=== PATIENT | male | born 1970 | race African-American/Black ===

== ENCOUNTER 2021-12-03 12:25 | Emergency (ER) | payer MEDICAID ==
[~2021-12-03] VITALS: Ht 175.3 cm; Wt 107.5 kg
[2021-12-03 12:25] VITALS: BP_SYST 137
[2021-12-03] MEDS ORDERED: DIPH-TET-PERTUS Vaccine 0.5 ML VIAL (ADACEL) I.M. ONE (12:45)
[2021-12-03] MEDS ORDERED: LIDOCAINE 1% 10 MG/ML, 20 ML MDV INJ ONE (12:45)
[2021-12-03 12:52] LABS: BASOPHILS % (AUTO) 0.4 % (0.0-2.0); EOSINOPHILS % (AUTO) 0.5 % (0.0-4.0); HEMATOCRIT 44.8 % (36-54); HEMOGLOBIN 15.3 g/dL (14.0-18.0); LYMPHOCYTES # (AUTO) 2.3 K/uL (1.0-5.5); LYMPHOCYTES % (AUTO) 24.9 % (20.5-51.5); MEAN CORPUSCULAR HEMOGLOBIN 32 pg (27-31); MEAN CORPUSCULAR HGB CONC 34 % (32-36); MEAN CORPUSCULAR VOLUME 93 fL (79.0-98.0); NEUTROPHILS # (AUTO) 5.8 K/uL (1.8-7.7); NEUTROPHILS % (AUTO) 63.2 % (40.0-70.0); PLATELET COUNT (AUTO) 283 K/uL (130-430); RED CELL DISTRIBUTION WIDTH 14.7 % (9.0-15.0); WHITE BLOOD COUNT (AUTO) 9.2 K/uL (4.8-10.8)
[2021-12-03] MEDS ORDERED: CLIN-142 PO (13:28)
[2021-12-03 13:30] LABS: CALCIUM 8.2 mg/dL (8.4-11.0); CREATININE 1.08 mg/dL (0.55-1.30); POTASSIUM 4.4 mmol/L (3.5-5.1)
[2021-12-03 13:34] LABS: ALBUMIN 3.2 g/dL (3.4-4.8); C-REACTIVE PROTEIN QUANT 4.8 mg/dL (0-0.5); TOTAL BILIRUBIN 0.5 mg/dL (0.0-1.0)
[2021-12-03] MEDS ORDERED: BACITRACIN 1 GM OINT TP ONE (13:41)
[2021-12-03 14:21] VITALS: BP_SYST 137
== END 2021-12-03 14:21 | disposition home or self-care (01) ==
LOC: SED 12:25
DX: L02.211 Cutaneous abscess of abdominal wall (principal); Z88.6 Allergy status to analgesic agent; Z79.899 Other long term (current) drug therapy
CPT/HCPCS: 10060; 36415; 80053; 83605; 85025; 86140; 90471; 90715; 99283; J2001

== ENCOUNTER 2021-12-10 23:25 | Emergency (ER) | payer MEDICAID ==
[~2021-12-10] VITALS: Ht 175.3 cm; Wt 104.3 kg
[~2021-12-10 23:25] MED LIST: CLIN-142 PO
[2021-12-10 23:40] VITALS: BP_SYST 138
[2021-12-11 00:30] VITALS: BP_SYST 106
== END 2021-12-11 00:29 | disposition home or self-care (01) ==
LOC: SED 23:25
DX: L02.211 Cutaneous abscess of abdominal wall (principal); Z48.00 Encounter for change or removal of nonsurgical wound dressing
CPT/HCPCS: 99282

== ENCOUNTER 2021-12-14 10:48 | Emergency (ER) | payer MEDICAID ==
[~2021-12-14] VITALS: Ht 175.3 cm; Wt 104.8 kg
[2021-12-14 10:54] VITALS: BP_SYST 137
--- NOTE | 2021-12-14 10:55 | NUR ---
pt bib pov self for abd wound check. pt was triaged vss. dr villa at bedside
[2021-12-14] MEDS ORDERED: BACITRACIN 1 GM OINT TP ONE (10:59)
--- NOTE | 2021-12-14 11:03 | NUR ---
bacatracian applied to abd wound site then 2x2 and paper tape
[2021-12-14 11:12] VITALS: BP_SYST 144
--- NOTE | 2021-12-14 11:13 | NUR ---
Patient given written and verbal discharge instructions and verbalizes understanding. JORGE villa MD discussed with patient the results and treatment provided. Patient in stable condition. ID arm band removed. Patient educated on pain management and to follow up with PMD. Pain Scale 0. Opportunity for questions provided and answered. Medication side effect fact sheet provided.
== END 2021-12-14 11:12 | disposition home or self-care (01) ==
LOC: SED 10:48
DX: L02.211 Cutaneous abscess of abdominal wall (principal); Z48.817 Encounter for surgical aftercare following surgery on the skin and subcutaneous tissue; Z88.6 Allergy status to analgesic agent; Z79.899 Other long term (current) drug therapy
CPT/HCPCS: 99282

== ENCOUNTER 2022-02-01 07:32 | Emergency (ER) | payer MEDICAID ==
[~2022-02-01] VITALS: Ht 175.3 cm; Wt 106.6 kg
[2022-02-01 07:35] VITALS: BP_SYST 123
--- NOTE | 2022-02-01 07:35 | NUR ---
Pt to bed 4 for evaluation. Report to EDD Kidd who will assume care.
--- NOTE | 2022-02-01 07:40 | NUR ---
pt came to er by private vehicle from home, drove himself. pt has complaint of nubness bilaterally of arms. pt stated the right arm started on and off 1 yr ago. the left arm 2-3 weeks. pt does have limited rage of montion on right arm compared to left arm. pt does not have deminished bilateral hand strength. pt describes pain 6/10, took a tylenol apx 430 this morning. pt is in bed, with bed lowered and locked rails up
--- NOTE | 2022-02-01 07:47 | NUR ---
Dr Hull at pt bedside
--- NOTE | 2022-02-01 07:52 | NUR ---
JORGE Hollis at bedside examining patient.
--- NOTE | 2022-02-01 07:59 | NUR ---
EKG BEING CONDUCTED AT PATIENT BEDSIDE BY SUSI PATRICK
--- NOTE | 2022-02-01 08:00 | NUR ---
LAB AT PT BEDSIDE TO OBTAIN SAMPLE
--- NOTE | 2022-02-01 08:12 | NUR ---
XRAY TOOK PATIENT TO IMAGING ROOM
[2022-02-01 08:14] LABS: BASOPHILS % (AUTO) 0.4 % (0.0-2.0); EOSINOPHILS # (AUTO) 0.1 K/uL (0.0-0.4); EOSINOPHILS % (AUTO) 1.3 % (0.0-4.0); HEMATOCRIT 43.9 % (36-54); HEMOGLOBIN 14.6 g/dL (14.0-18.0); LYMPHOCYTES # (AUTO) 2.3 K/uL (1.0-5.5); LYMPHOCYTES % (AUTO) 43.4 % (20.5-51.5); MEAN CORPUSCULAR HEMOGLOBIN 31 pg (27-31); MEAN CORPUSCULAR HGB CONC 33 % (32-36); MEAN CORPUSCULAR VOLUME 94 fL (79.0-98.0); MONOCYTES # (AUTO) 0.6 K/uL (0.0-1.0); MONOCYTES % (AUTO) 10.9 % (1.7-9.3); NEUTROPHILS # (AUTO) 2.4 K/uL (1.8-7.7); PLATELET COUNT (AUTO) 279 K/uL (130-430); RED BLOOD CELL COUNT(AUTO) 4.69 MIL/uL (4.2-6.2); RED CELL DISTRIBUTION WIDTH 15.2 % (9.0-15.0); WHITE BLOOD COUNT (AUTO) 5.4 K/uL (4.8-10.8)
[2022-02-01 08:19] LABS: CREATININE 0.96 mg/dL (0.55-1.30); POTASSIUM 3.9 mmol/L (3.5-5.1)
[2022-02-01 08:24] LABS: TOTAL BILIRUBIN 0.3 mg/dL (0.0-1.0)
[2022-02-01] MEDS ORDERED: GABAPENTIN 300 MG CAPSULE PO ONE (09:00)
[2022-02-01] MEDS ORDERED: NEU300 PO (09:29)
[2022-02-01] MEDS ORDERED: ACET325T PO (09:29)
[2022-02-01] MEDS ORDERED: PRED20TA PO (09:29)
[2022-02-01 10:06] VITALS: BP_SYST 121
--- NOTE | 2022-02-01 10:07 | NUR ---
Patient given written and verbal discharge instructions and verbalizes understanding. ER MD discussed with patient the results and treatment provided. Patient in stable condition. ID arm band removed. Rx of TYLENOL, GABAPENTIN AND PREDNISONE given. Patient educated on pain management and to follow up with PMD. Pain Scale /10. Opportunity for questions provided and answered. Medication side effect fact sheet provided.
== END 2022-02-01 10:06 | disposition home or self-care (01) ==
LOC: SED 07:32
DX: M19.011 Primary osteoarthritis, right shoulder (principal); M47.812 Spondylosis without myelopathy or radiculopathy, cervical region; G56.22 Lesion of ulnar nerve, left upper limb; M50.322 Other cervical disc degeneration at C5-C6 level
CPT/HCPCS: 36415; 72040-TC; 73030; 80053; 84484; 85025; 93005; 99284; 99285

== ENCOUNTER 2022-03-18 22:50 | Emergency (ER) | payer MEDICAID ==
[~2022-03-18] VITALS: Ht 175.3 cm; Wt 106.6 kg
[~2022-03-18 22:50] MED LIST changes: +ACET325T PO; +NEU300 PO; +PRED20TA PO
[2022-03-18 22:56] VITALS: BP_SYST 122
--- NOTE | 2022-03-18 23:00 | NUR ---
PER PATIENT, DURING HIS BREAK AT WORK, PATIENT STARTED FEELING DIZZY AND VOMITING X3 AT APROX 2130 WITH ABDOMINAL PAIN AT THIS TIME. NO DIZZINESS AT THIS TIME, NOW IS FEELING LIGHT-HEADED.
--- NOTE | 2022-03-18 23:13 | NUR ---
Pt in bed 5 at this time w/ c/o lightheadedness, N/V, RLQ abdominal pain 7/10 burning in nature. 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 call light within reach. bed in low position. Normal skin color for ethnicity. Ambulates with strong steady gait.
[2022-03-18] MEDS ORDERED: ONDANSETRON 4 MG ODT TAB PO ONE (23:30)
--- NOTE | 2022-03-18 23:52 | NUR ---
Pt to CT at this time
[2022-03-18 23:58] LABS: BASOPHILS % (AUTO) 0.7 % (0.0-2.0); EOSINOPHILS # (AUTO) 0.1 K/uL (0.0-0.4); EOSINOPHILS % (AUTO) 1.7 % (0.0-4.0); HEMATOCRIT 41.8 % (36-54); HEMOGLOBIN 14.2 g/dL (14.0-18.0); LYMPHOCYTES # (AUTO) 2.4 K/uL (1.0-5.5); LYMPHOCYTES % (AUTO) 40.3 % (20.5-51.5); MEAN CORPUSCULAR HEMOGLOBIN 32 pg (27-31); MEAN CORPUSCULAR HGB CONC 34 % (32-36); MEAN CORPUSCULAR VOLUME 94 fL (79.0-98.0); MONOCYTES # (AUTO) 0.7 K/uL (0.0-1.0); MONOCYTES % (AUTO) 11.8 % (1.7-9.3); NEUTROPHILS # (AUTO) 2.7 K/uL (1.8-7.7); NEUTROPHILS % (AUTO) 45.5 % (40.0-70.0); PLATELET COUNT (AUTO) 241 K/uL (130-430); RED BLOOD CELL COUNT(AUTO) 4.44 MIL/uL (4.2-6.2); RED CELL DISTRIBUTION WIDTH 15.3 % (9.0-15.0)
[2022-03-19 00:24] LABS: ANION GAP 6 (5-15); CALCIUM 7.8 mg/dL (8.4-11.0); CHLORIDE 106 mmol/L (98-107); GLUCOSE 107 mg/dL (70-99); POTASSIUM 3.7 mmol/L (3.5-5.1); SODIUM SERUM 139 mmol/L (136-145); UREA NITROGEN, BLOOD 19 mg/dL (8-21)
[2022-03-19 00:33] LABS: ALANINE AMINOTRANSFERASE 24 U/L (12-78); ALBUMIN 2.9 g/dL (3.4-4.8); ASPARTATE AMINOTRANSFERASE 27 U/L (10-37); LIPASE 109 U/L (73-393); TOTAL BILIRUBIN < 0.1 mg/dL (0.0-1.0)
[2022-03-19 00:35] LABS: GFR AFRICAN AMERICAN 101 mL/min (>90)
--- NOTE | 2022-03-19 01:50 | NUR ---
Pt given and tolerated 240 mL water. Pt denies N/V.
--- NOTE | 2022-03-19 01:55 | NUR ---
Pt states "my abdominal pain went away"
--- NOTE | 2022-03-19 02:07 | NUR ---
MD at bedside speaking to patient
[2022-03-19 02:20] VITALS: BP_SYST 134
--- NOTE | 2022-03-19 02:27 | NUR ---
Patient given written and verbal discharge instructions and verbalizes understanding. ER MD discussed with patient the results and treatment provided. Patient in stable condition. ID arm band removed. IV catheter removed intact and dressing applied, no active bleeding. Patient educated on pain management and to follow up with PMD. Pain Scale 0/10 verbal scale. Opportunity for questions provided and answered. Medication side effect fact sheet provided.
== END 2022-03-19 02:20 | disposition home or self-care (01) ==
LOC: SED 22:50
DX: R10.31 Right lower quadrant pain (principal); R03.0 Elevated blood-pressure reading, without diagnosis of hypertension
CPT/HCPCS: 36415; 74176; 76376; 80053; 83690; 84484; 85025; 93005; 99285; Q0162

== ENCOUNTER 2022-04-11 04:30 | Emergency (ER) | payer MEDICAID ==
[~2022-04-11] VITALS: Ht 175.3 cm; Wt 101.2 kg
[2022-04-11 04:39] VITALS: BP_SYST 136
[2022-04-11] MEDS ORDERED: DIPH-TET-PERTUS Vaccine 0.5 ML VIAL (ADACEL) I.M. ONE (04:45)
--- NOTE | 2022-04-11 04:45 | NUR ---
Pt triaged at this time w/ c/o chemical exposure last night ~[id number] per pt "oil cleaning fluid for engine". Pt states woke up to burning sensation 5/10 to right upper abdomen. Minor skin breakdown. Respirations even and unlabored. Normal skin color for ethnicity.
[2022-04-11] MEDS ORDERED: SILV20CR13 TP (04:48)
[2022-04-11] MEDS ORDERED: CEPH-548 PO (04:48)
--- NOTE | 2022-04-11 05:01 | NUR ---
Patient given written and verbal discharge instructions and verbalizes understanding. ER MD discussed with patient the results and treatment provided. Patient in stable condition. ID arm band removed. IV catheter removed intact and dressing applied, no active bleeding. Rx of ANTIBIOTICS given. Patient educated on pain management and to follow up with PMD. Pain Scale . Opportunity for questions provided and answered. Medication side effect fact sheet provided.
== END 2022-04-11 05:01 | disposition home or self-care (01) ==
LOC: SED 04:30
DX: T21.12XA Burn of first degree of abdominal wall, initial encounter (principal); Z88.6 Allergy status to analgesic agent; Z79.899 Other long term (current) drug therapy; X12.XXXA Contact with other hot fluids, initial encounter; Y93.89 Activity, other specified; Y92.89 Other specified places as the place of occurrence of the external cause; Y99.8 Other external cause status
CPT/HCPCS: 90715; 99283

== ENCOUNTER 2022-07-05 12:16 | Emergency (ER) | payer MEDICAID ==
[~2022-07-05] VITALS: Ht 175.3 cm; Wt 95.3 kg
[~2022-07-05 12:16] MED LIST changes: +CEPH-548 PO; +SILV20CR13 TP
[2022-07-05 12:20] VITALS: BP_SYST 113
--- NOTE | 2022-07-05 12:25 | NUR ---
Patient triaged and placed in waiting room. VSS and patient appears in no acute distress at this time. Accompanied by SELF, awaiting available bed, and MD notified of need for MSE.
--- NOTE | 2022-07-05 12:35 | NUR ---
PT STATES THAT HE HAS BEEN DIAGNOSED WITH CARPAL TUNNEL TO BROCK HANDS, RIGHT WORSE THAN LEFT. STATES NOW BOTH HANDS ARE SWOLLEN AND PAINFUL. PT STATES THAT HE HAS BEEN TAKING GABAPENTIN AND TYLENOL WITHOUT RELIEF.
--- NOTE | 2022-07-05 12:51 | NUR ---
SEEN AND EVALUATED BY DR FLOREZ IN TRIAGE ROOM
[2022-07-05] MEDS ORDERED: HYDR-3917 PO (12:59)
--- NOTE | 2022-07-05 13:21 | NUR ---
Patient given written and verbal discharge instructions and verbalizes understanding. ER MD discussed with patient the results and treatment provided. Patient in stable condition. ID arm band removed Rx of NORCO given. Patient educated on pain management and to follow up with PMD. Pain Scale 0/10. Opportunity for questions provided and answered. Medication side effect fact sheet provided.
== END 2022-07-05 13:17 | disposition home or self-care (01) ==
LOC: SED 12:16
DX: M54.12 Radiculopathy, cervical region (principal); M79.641 Pain in right hand; Z88.6 Allergy status to analgesic agent; Z79.899 Other long term (current) drug therapy
CPT/HCPCS: 99283

== ENCOUNTER 2022-07-13 00:14 | Emergency (ER) | payer MEDICAID ==
[~2022-07-13] VITALS: Ht 175.3 cm; Wt 95.3 kg
[~2022-07-13 00:14] MED LIST changes: +HYDR-3917 PO
[2022-07-13 00:22] VITALS: BP_SYST 135
--- NOTE | 2022-07-13 00:27 | NUR ---
PT HERE C/O PAIN AND POSSIBLE ABSCESS TO BROCK ARMPIT SINCE YESTERDAY. PT DENIES FVER, DENIES OTHER SYMPTOMS. PMH:NUEROPHATY PT AAOX4, NO SOB NOTED AND NOT IN ANY DISTRESS AT THIS TIME.
--- NOTE | 2022-07-13 00:59 | NUR ---
Patient to ER bed 06 to gown for evaluation. Side rails up. Report given to EDD Crawford
--- NOTE | 2022-07-13 01:22 | NUR ---
ER at bedside examining patient.
[2022-07-13] MEDS ORDERED: MORPHINE 4 MG INJ. 4 MG/ML VIAL IVP ONE (01:30)
[2022-07-13] MEDS ORDERED: metroNIDAZOLE 500 mg/NS 100 ML IV ONE (01:30)
[2022-07-13] MEDS ORDERED: NACL 0.9% 1,000 ML IV ONE (01:30)
--- NOTE | 2022-07-13 01:55 | NUR ---
# 20 gauge angiocath placed to right hand. Use of asceptic technique. Opsite placed over site. Blood return noted. Blood for lab drawn from site. Flushed with 10 cc of normal saline. No evidence of infiltration noted. Patient tolerated well.
[2022-07-13 02:38] LABS: BASOPHILS % (AUTO) 0.4 % (0.0-2.0); EOSINOPHILS # (AUTO) 0.1 K/uL (0.0-0.4); EOSINOPHILS % (AUTO) 1.2 % (0.0-4.0); HEMATOCRIT 39.7 % (36-54); HEMOGLOBIN 13.6 g/dL (14.0-18.0); LYMPHOCYTES # (AUTO) 2.2 K/uL (1.0-5.5); MEAN CORPUSCULAR HEMOGLOBIN 32 pg (27-31); MEAN CORPUSCULAR HGB CONC 34 % (32-36); MEAN CORPUSCULAR VOLUME 94 fL (79.0-98.0); MONOCYTES # (AUTO) 0.8 K/uL (0.0-1.0); MONOCYTES % (AUTO) 11.8 % (1.7-9.3); NEUTROPHILS # (AUTO) 3.6 K/uL (1.8-7.7); NEUTROPHILS % (AUTO) 53.6 % (40.0-70.0); PLATELET COUNT (AUTO) 281 K/uL (130-430); RED BLOOD CELL COUNT(AUTO) 4.25 MIL/uL (4.2-6.2); RED CELL DISTRIBUTION WIDTH 14.9 % (9.0-15.0); WHITE BLOOD COUNT (AUTO) 6.7 K/uL (4.8-10.8)
[2022-07-13 02:44] LABS: CALCIUM 8.4 mg/dL (8.4-11.0); CREATININE 1.27 mg/dL (0.55-1.30); POTASSIUM 3.8 mmol/L (3.5-5.1)
[2022-07-13 02:59] LABS: ALBUMIN 2.7 g/dL (3.4-4.8); TOTAL BILIRUBIN 0.2 mg/dL (0.0-1.0)
--- NOTE | 2022-07-13 04:55 | NUR ---
PT IS IN BED, ASLEEP. NAD, AFEBRILE. SAFE & HAZARD FREE ENVIRONMENT PROVIDED. WILL CON'T TO MONITOR.
[2022-07-13] MEDS ORDERED: METR-154 PO (05:36)
[2022-07-13] MEDS ORDERED: NAPR-690 PO (05:36)
[2022-07-13 05:52] VITALS: BP_SYST 129
--- NOTE | 2022-07-13 05:53 | NUR ---
Patient given written and verbal discharge instructions and verbalizes understanding. ER MD discussed with patient the results and treatment provided. Patient in stable condition. ID arm band removed. IV catheter removed intact and dressing applied, no active bleeding. Rx of FLAGYL & NAPROXEN given. Patient educated on pain management and to follow up with PMD. Pain Scale 0/10. Opportunity for questions provided and answered. Medication side effect fact sheet provided. PT IS AMBULATORY W/ STEADY GAIT.
== END 2022-07-13 05:52 | disposition home or self-care (01) ==
LOC: SED 00:14
DX: L73.2 Hidradenitis suppurativa (principal); M79.622 Pain in left upper arm; M79.621 Pain in right upper arm; Z88.6 Allergy status to analgesic agent; Z79.899 Other long term (current) drug therapy
CPT/HCPCS: 99284; 96365; 96375; 80053; 85025; 87040; 36415; 83605; J3490; J2270

== ENCOUNTER 2023-02-15 01:33 | Emergency (ER) | payer MEDICAID ==
[~2023-02-15] VITALS: Ht 175.3 cm; Wt 106.6 kg
[~2023-02-15 01:33] MED LIST changes: +METR-154 PO; +NAPR-690 PO
[2023-02-15 01:50] VITALS: BP_SYST 160
[2023-02-15] MEDS ORDERED: ONDANSETRON 4 MG ODT TAB ONE (03:58)
[2023-02-15] MEDS ORDERED: ONDANSETRON 4 MG ODT TAB PO ONE (04:00)
[2023-02-15] MEDS ORDERED: BACLOFEN 10 MG TABLET PO ONE (04:15)
[2023-02-15] MEDS ORDERED: DEXAMETHASONE SOD PHOSPHATE 4 MG/ML VIAL PO ONE (04:15)
[2023-02-15] MEDS ORDERED: BACLOFEN 10 MG TABLET ONE (04:43)
[2023-02-15] MEDS ORDERED: BACL10TA PO (05:12)
[2023-02-15 06:47] VITALS: BP_SYST 132
== END 2023-02-15 05:46 | disposition home or self-care (01) ==
LOC: SED 01:33
DX: M54.50 Low back pain, unspecified (principal); M79.662 Pain in left lower leg; Z88.6 Allergy status to analgesic agent; Z79.899 Other long term (current) drug therapy
CPT/HCPCS: 99284; Q0162; J1100